=== PATIENT | female | born 1960 | race Caucasian/White ===

== ENCOUNTER 2017-07-25 05:54 | Emergency (ER) | payer MEDICARE, OTHER ==
[~2017-07-25] VITALS: Ht 162.6 cm; Wt 90.0 kg
[~2017-07-25 05:54] MED LIST: ATOR20TA65 PO; GLIP10TA10 PO; LOSA25TA12 PO; METF10002 PO; SITA1TAB8 PO
[2017-07-25] MEDS ORDERED: BUTA1CAP17 PO (07:07)
[2017-07-25] MEDS ORDERED: MORPHINE SULFATE 4 MG/ML CPJ (NOT FOR IM USE) IV STA (07:44)
[2017-07-25] MEDS ORDERED: SODIUM CHLORIDE 0.9% 1,000 ML IV ONE (07:44)
[2017-07-25] MEDS ORDERED: ONDANSETRON HCL 4MG/2ML VIAL IV STA (07:44)
[2017-07-25 08:21] LABS: BASOPHILS % 0.7 % (0.0-2.0); EOSINOPHILS % 2.6 % (0.0-5.0); HEMATOCRIT. 35.6 % (36.0-48.0); LYMPHOCYTES % 29.2 % (20.0-50.0); MEAN CORPUSCULAR HEMOGLOBIN 28.3 pg (28.0-32.0); MEAN CORPUSCULAR VOLUME 84.3 fL (81.0-99.0); MEAN PLATELET VOLUME 7.6 fl (7.4-10.4); MONOCYTES % 7.4 % (2.0-8.0); NEUTROPHILS % 60.1 % (40.0-76.0); PLATELET 272 x1000/uL (130-400); RED BLOOD CELL COUNT 4.23 mill/uL (4.2-5.4); RED CELL DISTRIBUTION WIDTH 13.9 % (11.6-14.6)
[2017-07-25 08:28] LABS: CHLORIDE 106 mEq/L (98-107)
[2017-07-25 08:36] LABS: CARBON DIOXIDE 27 mEq/L (21-32)
[2017-07-25] MEDS ORDERED: HYDROCODONE/ACETAMINOPHEN 5/325MG TABLET PO ONE (10:00)
[2017-07-25 10:17] VITALS: BP 150/92
== END 2017-07-25 10:42 | disposition home or self-care (01) ==
LOC: ER 05:54
DX: R51 Headache (principal); I10 Essential (primary) hypertension; E78.00 Pure hypercholesterolemia, unspecified; E11.9 Type 2 diabetes mellitus without complications; Z79.82 Long term (current) use of aspirin; Z87.440 Personal history of urinary (tract) infections; Z88.6 Allergy status to analgesic agent
CPT/HCPCS: 36415; 70450; 80053; 82962; 85025; 96361; 96374; 96375; 99285; J2270; J2405; J7030

== ENCOUNTER 2018-04-06 15:32 | Emergency (ER) | payer MEDICARE, OTHER ==
[~2018-04-06] VITALS: Ht 162.6 cm; Wt 90.0 kg
[~2018-04-06 15:32] MED LIST changes: +ASPI-1159 PO; +BUTA1CAP17 PO; +CEPH500C2 PO; +CLOP75TA33 PO; +GABA-529 PO; -METF10002 PO; +METF10004 PO; +METO-539 PO; +tresiba SQ
[2018-04-06] MEDS ORDERED: FAMOTIDINE 20MG/2ML VIAL IV ONE (17:00)
[2018-04-06] MEDS ORDERED: DIPHENHYDRAMINE 50MG/ML VIAL IV ONE (17:00)
[2018-04-06] MEDS ORDERED: METHYLPREDNISOLONE SOD SUCC 125 MG/2 ML VIAL IV ONE (17:00)
[2018-04-06 18:55] VITALS: BP 160/90
== END 2018-04-06 19:40 | disposition home or self-care (01) ==
LOC: ER 15:32
DX: L50.9 Urticaria, unspecified (principal); I25.10 Atherosclerotic heart disease of native coronary artery without angina pectoris; I10 Essential (primary) hypertension; E11.9 Type 2 diabetes mellitus without complications; E78.00 Pure hypercholesterolemia, unspecified; Z88.6 Allergy status to analgesic agent; Z79.84 Long term (current) use of oral hypoglycemic drugs
CPT/HCPCS: 96374; 96375; 99284; J1200; J2930; J3490

== ENCOUNTER 2019-04-18 20:02 | Emergency (ER) | payer MEDICARE, OTHER ==
[~2019-04-18] VITALS: Ht 152.4 cm; Wt 91.0 kg
[~2019-04-18 20:02] MED LIST changes: -ASPI-1159 PO; +ASPI-1393 PO; -LOSA25TA12 PO; +LOSA25TA26 PO; +METF-416 PO; -METF10004 PO
[2019-04-18] MEDS ORDERED: ACETAMINOPHEN 325MG TABLET PO ONE (21:00)
[2019-04-18] MEDS ORDERED: MELOXICAM 7.5MG TABLET PO SCH (21:30)
[2019-04-18 23:50] VITALS: BP 137/61
== END 2019-04-18 23:52 | disposition home or self-care (01) ==
LOC: ER 21:59
DX: M25.562 Pain in left knee (principal); E11.9 Type 2 diabetes mellitus without complications; E78.00 Pure hypercholesterolemia, unspecified; I10 Essential (primary) hypertension; Z98.51 Tubal ligation status; Z79.82 Long term (current) use of aspirin; Z79.899 Other long term (current) drug therapy; Z88.6 Allergy status to analgesic agent
CPT/HCPCS: 73562; 99283; L1830